=== PATIENT | male | born 1965 | race African-American/Black ===

== ENCOUNTER 2024-08-26 17:09 | Emergency (ER) | payer OTHER, SELFPAY ==
--- NOTE | ~2024-08-26 | XR_ITS ---
EXAMINATION: XR HAND, RIGHT CLINICAL INFORMATION: Trauma with radiator. COMPARISON: None available. TECHNIQUE: PA, lateral, and oblique views of the right hand. FINDINGS: Age indeterminate fracture of the distal fifth metacarpal. Chronic appearing deformity of the fourth digit at the level of the proximal interphalangeal joint. Multifocal degenerative changes. Nonspecific localized soft tissue swelling around the proximal interphalangeal joints. XR/XR hand RT min 3V IMPRESSION: 1. Age indeterminate fracture of the distal fifth metacarpal. 2. Chronic appearing deformity of the fourth digit at the proximal interphalangeal joint. 3. Multifocal degenerative changes. 4. Somewhat nodular-like localized swelling around the proximal interphalangeal joints could indicate inflammatory arthritis, correlate clinically. Electronically signed by: Ana Blancas MD 08/26/2024 07:37 PM EST [facility]
[2024-08-26 17:15] VITALS: BP 130/96; PULSE 80; O2SAT 99
[2024-08-26 17:18] VITALS: BP 139/92; PULSE 77; RESP 16; TEMP 37; O2SAT 98
[2024-08-26 17:24] VITALS: BMI 24.0
--- NOTE | 2024-08-26 17:36 | PC.NURSE ---
Pt comes to ED today with c/o R hand pain 05/29. Pt reports R hand was crushed in between a radiator and TV 2 weeks ago. Reports using ice to help but has pain with movements such as playing basketball.
--- NOTE | 2024-08-26 18:33 | ED_ITS ---
HPI - Extremity Problem General Chief complaint: Extremity Injury, Upper Stated complaint: r hand pain Time Seen by Provider: 08/26/24 17:10 Source: patient, RN notes reviewed and old records reviewed Mode of arrival: ambulatory History of Present Illness ED Provider: Sandhya Davis PA-C HPI Narrative: 58-year-old male with no significant past medical history presenting to ED via EMS from [facility] complaining of right hand pain x 2 weeks s/p jamming hand between TV and radiator. States pain exacerbated today while playing basketball. Has been icing without relief. Denies numbness, tingling, weakness. Related Data Previous Rx's ?Medication ?Instructions ?Recorded acetaminophen 500 mg tablet 500 mg PO Q6H PRN pain #30 tabs 08/26/24 (Tylenol Extra Strength) Allergies Allergy/AdvReac Type Severity Reaction Status Date / Time No Known Allergies Allergy Verified 08/26/24 17:28 Review of Systems Review of Systems: Yes all other systems are reviewed and are negative Constitutional: Constitutional: Reports as per [facility] Past Medical History Attestation statement: The following information was validated with the patient. Source: old records reviewed Social History Social History Advance Directives: No Advance Directives Information Provided: No Do you have a plan to hurt others: No Plan Physical Exam Vital Signs: Vital Signs: Last Vital Signs Temp 98.6 F 08/26/24 17:18 Pulse 77 08/26/24 17:18 Resp 16 08/26/24 17:18 BP 139/92 H 08/26/24 17:18 Pulse Ox 98 08/26/24 17:18 O2 Del Method Room Air 08/26/24 17:18 BMI result Body Mass Index 24.0 Const: General: cooperative, healthy appearing and no acute distress Orientation/consciousness: patient oriented x3 Limitations: no limitations HEENT: Head: Yes normal to inspection and Yes atraumatic Ears: hearing grossly normal bilaterally General nose exam: Normal external nose present Face and sinus: Yes normal facial exam Eyes: General: appearance normal, both eyes and all related structures EOM: EOMs intact bilaterally Neck: Neck: Yes normal visual inspection and Yes no meningeal signs Resp: Effort & Inspection: normal respiratory effort and no respiratory distress Cardio: Rate: regular rate Skin: Rashes: no rashes Wounds: no wounds Neuro: General: patient oriented x3, tone normal and no meningeal signs Cranial nerves: Yes CN's II-XII intact bilaterally Gait exam (Neuro): Normal gait present Extrem: Other: Right hand 5th metacarpal with appreciable swelling. Tender to palpation. ROM intact with pain. Neurovascularly intact. [id number] opposition intact. Course Course Course Narrative: 5th metacarpal fracture appreciated. Ulnar gutter splint applied -1911--ED care transferred to SON[facility] Driscoll pending official x-ray read Results discussed with patient including worrisome signs and symptoms and strict return precautions, and when to return to the emergency department. They verbalized understanding and feel safe for discharge at this time. Reevaluation(s) Reevaluation #1: Patient was given to me pending official x-ray report. X-rays reviewed as age indeterminate fracture of the distal 5th metacarpal. There is also a chronic appearing deformity of the 4th digit of the proximal interphalangeal joint. I discussed this with patient, he will follow-up with the group insurance specialist tomorrow. He was given Tylenol prior to his departure. He will be transported back via EMS. Answered all questions. Patient stable for discharge. Medical Decision Making Medical Decision Making MDM Narrative: 58-year-old male with no significant past medical history presenting to ED via EMS from [facility] complaining of right hand pain x 2 weeks s/p jamming hand between TV and radiator. On exam vital signs stable, NAD, nontoxic appearing, physical exam as noted above. Concern for 5th metacarpal fracture vs strain. Low suspicion for dislocation. No evidence of septic joint/arthritis Plan: X-rays Please refer to course for remaining clinical decision making, interpretation of labs/imaging results, and discussions with consultants and/or family members. Differential Diagnosis Differential Diagnoses: The differential diagnosis associated with the presentation includes As above Independent Interpretation I performed an independent interpretation of an: Plain X-Ray Radiology Impression Discussion of test interpretation with radiology: I have reviewed the radiologist's reading. Radiologist Impression: XR/XR hand RT min 3V IMPRESSION: 1. Age indeterminate fracture of the distal fifth metacarpal. 2. Chronic appearing deformity of the fourth digit at the proximal interphalangeal joint. 3. Multifocal degenerative changes. 4. Somewhat nodular-like localized swelling around the proximal interphalangeal joints could indicate inflammatory arthritis, correlate clinically. Electronically signed by: Ana Blancas MD 08/26/2024 07:37 PM [facility] Dictated By: Ana Blancas Independent Historian Clinical information obtained from an independent historian. History obtained from or confirmed by: EMS External Record Review External record reviewed: Inpatient record, Office record, Outpatient record, Prior outpatient labs, Prior outpatient radiology, Primary care record and Outside ED record Tests considered The following testing was considered but not selected: As above Prescription Management I considered prescription management with: Pain Medication Social Determinants Patient?s care significantly limited by Social Determinants of Health including: Low income, Problems related to primary support group and Other Social Determinant of Health Procedures Orthopedic Splinting/Casting Injury #1: Side: right Upper Extremity Injury Location: finger Upper Extremity Immobilizer: ulnar gutter Discharge Plan Discharge Clinical Impression: Fracture of fifth metacarpal bone Patient Disposition: Home, Self-Care Instructions: Hand Fracture (ED) Additional Instructions: You have a fracture of your 5th metacarpal. Please keep splint on, dry and clean DO NOT GET SPLINT WET FOLLOW-UP WITH ORTHOPEDICS, CALL TO MAKE AN APPOINTMENT IF FINGERS BECOME INCREASINGLY SWOLLEN, NUMB, OR DISCOLORED OR PAIN IS UNBEARABLE REMOVE SPLINT AND RETURN TO THE ED IMMEDIATELY Prescriptions: New acetaminophen [Tylenol Extra Strength] 500 mg tablet 500 mg PO Q6H PRN (Reason: pain) Qty: 30 0RF Referrals: [facility] [Provider Group] - 1 week Print Language: Mongolian
--- NOTE | 2024-08-26 19:03 | PC.NURSE ---
report received from Dania ROJAS, assume care of pt at this time
[2024-08-26] MEDS: Acetaminophen 325 MG TABLET 650 MG PO (20:22)
--- NOTE | 2024-08-26 20:57 | PC.NURSE ---
called report to Michelle mirza
[2024-08-26 21:42] VITALS: BP 144/92; PULSE 80; RESP 17; TEMP 36.4; O2SAT 97
== END 2024-08-26 21:30 | disposition home or self-care (01) ==
PROVIDERS: Emergency Provider Emergency Medicine
DX: S62.606A Fracture of unspecified phalanx of right little finger, initial encounter for closed fracture (principal); M79.644 Pain in right finger(s); Y29.XXXA Contact with blunt object, undetermined intent, initial encounter; Y93.9 Activity, unspecified; Y92.89 Other specified places as the place of occurrence of the external cause; Y99.8 Other external cause status
CPT/HCPCS: 29130; 73130; 99283; 99284

== ENCOUNTER 2024-09-06 09:10 | Outpatient (REF) | payer OTHER, SELFPAY ==
--- NOTE | ~2024-09-06 | XR_ITS ---
EXAMINATION: XR HAND RIGHT CLINICAL INFORMATION: Pain in right hand M79.641. COMPARISON: XR Right hand 08/26/2024 TECHNIQUE: PA, lateral, and oblique views of the right hand. FINDINGS: Persistent down moderately displaced mildly comminuted fractures of the distal 5th metatarsal unchanged. The distal fragment is tilted radial and volar unchanged. There is some callus formation noted unchanged. Osteoarthritis in the interphalangeal joints unchanged most prominent at the 4th PIP joint.. Additional mild osteoarthritis of the 1st carpometacarpal joint unchanged. XR/XR hand RT min 3V IMPRESSION: 1. No change in the appearance of the fracture of the distal 5th metacarpal. 2. Osteoarthritis. Electronically signed by: Rahat Bruce MD 11/02/2024 08:32 AM [facility]
== END 2024-09-06 09:11 | disposition home or self-care (01) ==
LOC: HO.HOSX 09:10
DX: S62.306A Unspecified fracture of fifth metacarpal bone, right hand, initial encounter for closed fracture (principal)
CPT/HCPCS: 73130; 99202

== ENCOUNTER 2024-09-06 10:09 | Outpatient (AMB) | payer OTHER, SELFPAY ==
--- NOTE | 2024-09-06 10:12 | MHC.OFFVIS ---
Vital Signs 09/06/24 10:28 Height 5 ft 6 in Weight 140 lb BMI 22.6 Handedness Right Intake Visit Reasons: ER F/Up, Rt 5th Metacarpal Fx Intake Note: Arnoldo is a 58 year old right hand dominant male who presents today as a new patient for an emergency department follow up for his right fifth metacarpal bone fracture. DOI: 08/12/24. Patient reports he was moving something off the table, at the end of table there is a radiator, he says he jammed his finger between the object and radiator. Patient report at first he has swelling and pain however it never resolved so he went to [facility] ED on 08/26/2024 for this. He reports he has constant daily pain. He has swelling on the dorsal aspect of his right hand near his 5th digit and also reports he feels numbness at his 5th right MCP joint. He has been unable to straighten his right small finger since this injury. HE has tried Tylenol Extra Strength however this provides no relief. Allergies No Known Allergies Allergy (Verified 09/06/24 10:28) HPI HPI ER F/Up, Rt 5th Metacarpal Fx: Details: Patient is a 58 YO M who presents for ED f/u of right fifth MC fracture, DOI approximately 4 weeks ago. The patient states that approximately 2 weeks before evaluation in the emergency department on 08/28/2024, he got his hand caught between a radiator and a television, resulting in pain and swelling over the right 5th metacarpal. Patient was evaluated in the emergency department proximally 2 weeks later, where x-rays were taken revealing a minimally displaced fracture of the right 5th metacarpal neck. Today, the patient reports that his pain has improved since he was evaluated in the ED, but it has not fully resolved yet. Patient was faithful in a splint from evaluation in the ED until today, when it was removed for x-rays. No other acute complaints or concerns at this time. [facility] Social History (Updated 09/06/24 @ 10:30 by MIREILLE Boyd) Alcohol intake: current Alcohol intake frequency: a few times a week Substance Use Type: Marijuana Current occupational status: disabled Current occupation: right handed Review of Systems Const All systems reviewed & are unremarkable except as noted in HPI and below Physical Exam Vital Signs: BMI result Body Mass Index 22.6 Extrem Other: Patient is alert, oriented, and in no acute distress. Neuro: Normal sensation of the tips of all digits of the right hand at this time Vascular: Cap refill brisk Pain: Patient does report some tenderness to palpation over the right 5th metacarpal head and neck Range of motion produces minor discomfort in the same area ROM: Patient is able to make a closed fist and extend all digits of the right hand fully Skin: No lacerations or abrasions. General: No ecchymosis, erythema, or evidence of infection. Psych: Appears grossly normal Affect normal Attitude cooperative Office Procedures AMB Fracture Care Fracture Billing Code: Fracture Billing Code Results Reviewed Results Reviewed: X-rays obtained in the office today and independently reviewed by me, Remy Fletcher PA-C, demonstrate minimally displaced fracture of the right 5th metacarpal neck with evidence of interval bony. Assessment & Plan Assessment & Plan (1) Fracture of fifth metacarpal bone of right hand: Code(s): S62.306A - Unspecified fracture of fifth metacarpal bone, right hand, initial encounter for closed fracture Category: Medical Plan 1. Right 5th metacarpal neck fracture Date of injury approximately 08/12-08/13 Patient appears to be recovering well from his injury Patient is educated about the typical recovery course , at this time, patient was informed that because he is 1 month out from injury, he will not require any acute splinting or casting at this time Patient is educated that he should nakul tape the ring and small fingers together to act as a moving splint Patient is also provided with a Velcro wrist splint to wear with daytime activities as a reminder that his hand is injured and to not overdo it Patient was amenable to this plan Patient will follow-up in 4 weeks with repeat x-rays, sooner with any acute concerns Orders: Orders XR hand RT min 3V 09/06/24 M79.641 - Pain in right hand Coding Level of Care Code New Pt Level 3 (65348) Diagnoses Fracture of fifth metacarpal bone of right hand S62.306A CPT Codes Fracture Care - Fracture Billing Code: Fracture Billing Code ([id number])
[2024-09-06 10:28] VITALS: BMI 22.6
== END 2024-09-06 11:07 | disposition home or self-care (01) ==
DX: S62.306A Unspecified fracture of fifth metacarpal bone, right hand, initial encounter for closed fracture (principal)
CPT/HCPCS: 99203